=== PATIENT | female | born 1985 | race Caucasian/White ===

== ENCOUNTER → 2016-04-27 | Outpatient (CLI) | payer OTHER ==
[~2016-04-27] MED LIST: FAMO10CH; PRENTAB26 PO
== END | disposition home or self-care (01) ==
LOC: C.PAPS 11:43
PROVIDERS: ATTEND Obstetrics & Gynecology
DX: Z01.419 Encounter for gynecological examination (general) (routine) without abnormal findings (principal); Z87.898 Personal history of other specified conditions

== ENCOUNTER → 2017-04-16 | Outpatient (CLI) | payer OTHER ==
[2017-04-16 09:52] LABS: BASO % 0.3 %; BASO ABS # 0.02 K/uL (0-0.2); EOS % 2.4 %; EOS ABS # 0.17 K/uL (0-0.5); HEMATOCRIT 39.3 % (37-47); HEMOGLOBIN 13.2 g/dL (12.0-16.0); IG# 0.01 K/uL (0.00-0.02); LYMPH % 41.4 %; LYMPH ABS # 2.91 K/uL (1.2-3.4); MEAN CELL VOLUME 97.3 fL (80-100); MEAN CORPUSCULAR HEMOGLOBIN 32.7 pg (25-34); MEAN CORPUSCULAR HGB CONC 33.6 g/dl (32-36); MONO ABS # 0.56 K/uL (0.11-0.59); NEUT % 47.8 %; NEUT ABS # 3.36 K/uL (1.4-6.5); PLATELET COUNT 224 K/uL (130-400); RED CELL DISTRIBUTION WIDTH CV 12.7 % (11.5-14.5); WHITE BLOOD COUNT 7.03 K/uL (4.8-10.8)
[2017-04-16 10:07] LABS: ALT/SGPT 19 U/L (12-78); AST/SGOT 18 U/L (15-37); BLOOD UREA NITROGEN 10 mg/dl (7-18); CALCIUM 8.9 mg/dl (8.5-10.1); CARBON DIOXIDE 26 mmol/L (21-32); CREATININE 0.72 mg/dl (0.60-1.20); GLUCOSE 94 mg/dl (70-99); POTASSIUM 3.7 mmol/L (3.5-5.1); SODIUM 137 mmol/L (136-145)
[2017-04-16 10:17] LABS: ALKALINE PHOSPHATASE 66 U/L (45-117); TOTAL PROTEIN 7.1 gm/dl (6.4-8.2)
== END | disposition home or self-care (01) ==
LOC: C.LAB1850 08:11
PROVIDERS: ATTEND Family Medicine
DX: R42 Dizziness and giddiness (principal); R51 Headache

== ENCOUNTER → 2017-08-11 | Outpatient (CLI) | payer OTHER | END | disposition home or self-care (01) | LOC: C.LABPVFM 17:32 | PROVIDERS: ATTEND Family Medicine | DX: R10.9 Unspecified abdominal pain (principal) ==

== ENCOUNTER → 2017-11-01 | Outpatient (CLI) | payer OTHER ==
[~2017-11-01] MED LIST changes: -FAMO10CH; +HYDR-5688 PO; +IBUP-1050 PO; +MULT-506 PO; +NAPR1TAB9 PO; -PRENTAB26 PO
== END | disposition home or self-care (01) ==
LOC: C.LAB1850 16:20
PROVIDERS: ATTEND Family Medicine
DX: R10.32 Left lower quadrant pain (principal)

== ENCOUNTER 2020-10-25 07:52 | Inpatient (IN) ==
[2020-10-25] MEDS ORDERED: OXYTOCIN 30 UNITS/500 ML BAG IV PRN (08:43)
[2020-10-25] MEDS ORDERED: DINOPROSTONE 10 MG INSERT PV ONE (08:43)
--- NOTE | 2020-10-25 08:58 | History & Physical Report ---
Date of Service October 25, 2020 Assessment & Plan (1) Elective induction of labor planned: Plan: 35-year-old -0-0-1 at 39 weeks of gestation, IV , anxiety due to family history of IUFD, Vital signs stable afebrile, heart rate reassuring, GBS negative, Cervix unfavorable, Plan, admit, monitor, labs, cervical ripening with Cervidil, All questions were answered. (2) In vitro fertilization: (3) Asthma: (4) Advanced maternal age (AMA) in : Admission and Anticipated Discharge Date Admission Date: October 25, 2020 History of Present Illness Primary Care Provider: Malena Sandra PA-C Patient is a 35-year-old -0-0-1 at 39 weeks of gestation who was scheduled for induction of labor at term due to anxiety of family history of IUFD. She has presented twice with decreased movements and desire to be induced at 39 weeks. She was nervous and crying last week, because her sister has IUFD 2 years ago and this baby is an IVF . She had irregular contractions, no leakage of fluid or bleeding and now she reports good movements. Her has been complicated by, 1 AMA, 2 IVF , 3 anxiety, not on meds, 4 mild intermittent asthma, has not used inhaler during this . GBS is negative Allergies Allergy/AdvReac Type Severity Reaction Status Date / Time clarithromycin Allergy Mild DIARRHEA Verified 09/23/17 16:18 peanut Allergy Mild Itching Verified 10/25/20 08:01 throat latex Allergy Rash Verified 10/18/20 14:47 Cipro AdvReac Intermediate Dizziness/lightheadedness/tingling Verified 09/23/17 16:18 lips ciprofloxacin [Cipro] AdvReac Intermediate Dizziness/lightheadedness/tingling Verified 10/05/20 10:42 lips Home Medications Medication Instructions Recorded Confirmed Type ferrous sulfate 325 mg (65 mg 325 mg PO DAILY 10/05/20 10/25/20 History iron) tablet (iron) magnesium 100 mg capsule 100 mg PO DAILY 10/05/20 10/25/20 History omeprazole 10 mg capsule,delayed 10 mg PO DAILY 10/05/20 10/25/20 History release prenat.vits,clark,[id number] 1 tab PO DAILY 10/05/20 10/25/20 History Patient History Medical History (Updated 10/25/20 @ 08:57 by Ghada Mcdonald MD) Abnormal Pap smear of cervix HPV positive Abnormal PAP in 20's. - WNL now. Advanced maternal age (AMA) in Anxiety Currently sees a counselor. Discontinued Buspar 08/2019 and Hydroxyzine 11/2019. Asthma Albuterol inhaler PRN. - Hasn't used in 1 year. Former smoker Quit 07/28/2009 In vitro fertilization 02/14/20 Embryo transfer. The patient's had a vasectomy - Sperm retrieval. First was to a different FOB and spontaneous. (normal spontaneous vaginal delivery) 02/26/2014 6lbs 13oz 40 weeks. 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 Beliefs That Will Affect Care: None marital status: marital status details: Vishnu Driver Current Living Situation: Spouse Current Living Situation Comment: Lives with and 6yo son Benji current occupational status: employed current occupation: [employer] Other Information That Helps Us Care for You: No Feels Safe at Home: Yes and No Is there a partner from a previous relationship who is making you feel unsafe now?: No Any Concerns about Your Family Situation: No Would You Like to Speak to Someone About Your Situation: No Childhood Exposure to Second-Hand Smoke: No Dental Care, Regularly: No Assistive Devices: None OB History Full-term in 2013 [employer] History History of ovarian dermoid cystectomy in 2018, Denies any history of STDs including chlamydia, gonorrhea, herpes Review of Systems as per Subjective / HPI Physical Exam Constitutional: WD/WN, vitals as above well developed and well nourished Not in acute distress, smiling today. Gastrointestinal (Abdomen): Inspection/Auscultation: abdomen normal to inspection and + abdomen distended (Gravid, Rey 7 pounds) Genitourinary: normal external appearance OB Exam Abdomen: + vertex Manual OB Exam: + cervical dilation 1 cm, + cervical effacement 40% and + station -2 OB Exam Monitor Tracing: + external uterine monitor used and + category I Results & Data ([facility]) Vital Signs (Past 12 Hours) Vital Signs Temp Pulse Resp BP 10/25/20 08:03 36.7 C 96 H 18 127/84 10/25/20 07:58 96 H 127/84 Laboratory Results Lab Results 10/25/20 Range/Units 08:33 COVID-19 [facility]
[2020-10-25 09:42] LABS: Hematocrit (blood only) 36.4 % (37-47); Mean Corpuscular Volume 97.1 fL (80-100); Mean Platelet Volume 11.4 fL (7.4-10.4); Platelet Count 181 K/uL (130-400); RDW Coefficient of Variation 13.8 % (11.5-14.5); RDW Standard Deviation 49.2 fL (36.4-46.3); Red Blood Count 3.75 M/uL (4.2-5.4); White Blood Count 7.53 K/uL (4.8-10.8)
[2020-10-25] MEDS ORDERED: BUTORPHANOL TARTRATE 1 MG/ML VIAL IV ONE (20:04)
[2020-10-25] MEDS ORDERED: ONDANSETRON INJ 2 MG/ML 2 ML VIAL IV PRN ×2 (20:04→20:06)
[2020-10-25] MEDS ORDERED: NALBUPHINE HCL INJ 10 MG/ML AMP IV PRN (20:06)
[2020-10-25] MEDS ORDERED: NALOXONE HCL 1 MG in SODIUM CHLORIDE 0.9% 1000ML 1,000 ML IV PRN (20:06)
[2020-10-25] MEDS ORDERED: NALOXONE HCL 0.4 MG/1 ML VIAL/CARP IV PRN (20:06)
[2020-10-25] MEDS ORDERED: diphenhydrAMINE 50 MG/ML VIAL IV PRN (20:06)
[2020-10-25] MEDS ORDERED: fentaNYL 2MCG/ML ROPIVACAINE 1.25MG/ML 100 ML BAG EPI PRN (20:06)
[2020-10-25] MEDS ORDERED: ePHEDrine sulfate 50 MG/ML AMP IV PRN (20:06)
--- NOTE | 2020-10-25 20:06 | Obstetrical Progress Note ---
Date of Service October 25, 2020 Assessment & Plan Admission and Anticipated Discharge Date Admission Date: October 25, 2020 Subjective Patient is reevaluated She feels painful and desires pain meds Ctxs are coming every 1-2 min VE; 1-2 cm/ 30-40%/ -3, removed cervidil FHR categ I [place] ctxs q 2 min Discussed pain management and IV pain med and epidural She desires IV pain med and then diet Continue to monitor Results & Data ([facility]) Vital Signs (Past 12 Hours) Vital Signs Temp Pulse Resp BP 10/25/20 19:25 37.2 C 18 10/25/20 19:18 90 135/79 10/25/20 11:27 73 125/80 10/25/20 11:26 36.8 C 16
--- NOTE | 2020-10-25 20:07 | Anesthesiology Consultation ---
Date of Service October 25, 2020 Assessment & Plan (1) Encounter for pre-operative examination: Chart Review Chart Review: Patient NOT seen in Pre Admission Testing and Acceptable Risk for Labor Epidural Consults Requested none History Height/Weight Height: 5 ft 2 in Allergies Allergy/AdvReac Type Severity Reaction Status Date / Time peanut Allergy Severe Itching Verified 10/25/20 19:07 throat latex Allergy Intermediate Rash Verified 10/25/20 19:07 clarithromycin Allergy Mild DIARRHEA Verified 09/23/17 16:18 Cipro AdvReac Intermediate Dizziness/lightheadedness/tingling Verified 09/23/17 16:18 lips ciprofloxacin [Cipro] AdvReac Intermediate Dizziness/lightheadedness/tingling Verified 10/05/20 10:42 lips Medications Home Medications Medication Instructions Recorded Confirmed Last Taken ferrous sulfate 325 mg (65 mg 325 mg PO DAILY 10/05/20 10/25/20 10/24/20 iron) tablet (iron) magnesium 100 mg capsule 100 mg PO DAILY 10/05/20 10/25/20 10/24/20 omeprazole 10 mg capsule,delayed 10 mg PO DAILY 10/05/20 10/25/20 10/24/20 release prenat.vits,clark,[id number] 1 tab PO DAILY 10/05/20 10/25/20 10/24/20 Active Medications Generic Name Dose Route Start Last Admin Trade Name Freq PRN Reason Stop Dose Admin Lactated Ringer's 1,000 mls @ 150 mls/hr 10/25/20 08:43 10/26/20 10:00 Lr IV 10/27/20 08:42 999 mls/hr .Q6H40M PRN Infusion L&D Protocol Protocol Oxytocin 30 units in 500 mls @ 8 mls/hr 10/26/20 07:43 10/26/20 10:15 Pitocin IV 10/28/20 07:42 0.48 units/hr .Q24H PRN 8 mls/hr Labor Induction/Augmentation Titration Protocol 0.48 UNITS/HR Misoprostol 50 mcg 10/26/20 00:00 10/26/20 03:59 Misoprostol 50 Mcg Tab PO 11/25/20 00:00 50 mcg Q4 AMINA Administration Past Medical History Medical History Abnormal Pap smear of cervix HPV positive Abnormal PAP in 20's. - WNL now. Advanced maternal age (AMA) in Anxiety Currently sees a counselor. Discontinued Buspar 08/2019 and Hydroxyzine 11/2019. Asthma Albuterol inhaler PRN. - Hasn't used in 1 year. Former smoker Quit 07/28/2009 In vitro fertilization 02/14/20 Embryo transfer. The patient's had a vasectomy - Sperm retrieval. First was to a different FOB and spontaneous. (normal spontaneous vaginal delivery) 02/26/2014 6lbs 13oz 40 weeks. Reflux esophagitis Exercise / Class Metabolic Activity II 4-5 Yardwork/Stairs/Walk up hill Past Family History Family History Other No known health problems Past Surgical History Surgical History History of hysteroscopy History of right oophorectomy Dermoid cyst - 09/23/2017 Hx of appendectomy Past Anesthesia History No Hx of Anesthesia Complications and No Family Hx of Anesthesia Complications History of PONV No Hx of PONV and No Hx of Motion Sickness Social History Smoking Status: Former smoker tobacco type: cigarettes Do You Dip or Chew Tobacco: No Hx Alcohol Use: No Hx Substance Use: No Physical Exam Vital Signs Last Vital Signs Temp 36.7 C 10/26/20 07:03 Pulse 114 H 10/26/20 11:13 Resp 18 10/26/20 07:03 BP 98/63 L 10/26/20 11:13 Pulse Ox 99 10/26/20 11:11 Testing Laboratory Results 10/25/20 09:26
[2020-10-26] MEDS: miSOPROStoL 50 MCG TAB PO SCH ×2 (00:03→03:59)
[2020-10-26] MEDS ORDERED: OXYTOCIN 30 UNITS/500 ML BAG IV PRN ×2 (07:43→19:23)
--- NOTE | 2020-10-26 07:45 | Obstetrical Progress Note ---
Date of Service October 26, 2020 Assessment & Plan Admission and Anticipated Discharge Date Admission Date: October 25, 2020 Subjective Patient is reevaluated s/p Cervidil and 2 doses of Cytotec She feels irregular contractions No LOF/VB +FM's VSS Afebrile FHR categ I VE: 2cm/ 30%/ -3 Continue to monitor Will start Oxytocin per protocol Results & Data ([facility] [place]) Vital Signs (Past 12 Hours) Vital Signs Temp Pulse Resp BP Pulse Ox 10/26/20 07:03 36.7 C 86 18 117/71 10/26/20 03:18 36.7 C 73 123/76 10/25/20 23:34 84 94 10/25/20 23:31 81 95 10/25/20 23:26 81 94 10/25/20 23:24 81 94 10/25/20 23:21 82 96 10/25/20 23:18 88 94 10/25/20 23:16 83 97 10/25/20 23:11 83 96 10/25/20 23:09 105 H 94 10/25/20 23:06 88 97 10/25/20 23:01 76 96 10/25/20 22:56 95 H 97 10/25/20 22:51 88 96 10/25/20 22:46 79 96 10/25/20 22:41 93 H 96 10/25/20 22:36 96 H 120/62 98 10/25/20 22:35 37.0 C 18 10/25/20 22:29 104 H 96 10/25/20 22:27 111 H 94 10/25/20 22:24 102 H 97 10/25/20 22:22 105 H 94 10/25/20 22:19 104 H 97 10/25/20 22:14 102 H 96 10/25/20 22:09 96 H 95 10/25/20 22:05 90 94 10/25/20 22:04 96 H 97 10/25/20 21:59 114 H 97 10/25/20 21:54 100 H 95 10/25/20 21:49 98 H 96 10/25/20 21:44 94 H 95 10/25/20 21:39 111 H 98 10/25/20 21:34 93 H 97 10/25/20 21:29 84 96 10/25/20 21:24 81 99
[2020-10-26] MEDS: LACTATED RINGER'S 1,000 ML IV PRN ×2 (07:50→11:35)
[2020-10-26] MEDS ORDERED: fentaNYL citrate 100 MCG/2 ML VIAL ONE (09:53)
[2020-10-26] MEDS ORDERED: BUPIVACAINE 0.25% 30 ML VIAL ONE (09:53)
[2020-10-26] MEDS ORDERED: ePHEDrine sulfate 50 MG/ML AMP ONE (09:53)
[2020-10-26] MEDS ORDERED: SODIUM CHLORIDE 0.9% INJ 10 ML VIAL ONE (09:53)
[2020-10-26] MEDS ORDERED: fentaNYL 2MCG/ML ROPIVACAINE 1.25MG/ML 100 ML BAG EPI ONE (09:54)
[2020-10-26] MEDS ORDERED: NALBUPHINE HCL INJ 10 MG/ML AMP IV PRN (11:17)
[2020-10-26] MEDS ORDERED: diphenhydrAMINE 50 MG/ML VIAL IV PRN (11:17)
[2020-10-26] MEDS ORDERED: ePHEDrine sulfate 50 MG/ML AMP IV PRN (11:17)
[2020-10-26] MEDS ORDERED: NALOXONE HCL 0.4 MG/1 ML VIAL/CARP IV PRN (11:17)
[2020-10-26] MEDS ORDERED: fentaNYL 2MCG/ML ROPIVACAINE 1.25MG/ML 100 ML BAG EPI PRN (11:17)
[2020-10-26] MEDS ORDERED: NALOXONE HCL 1 MG in SODIUM CHLORIDE 0.9% 1000ML 1,000 ML IV PRN (11:17)
--- NOTE | 2020-10-26 13:32 | Labor Progress Brief Note ---
Date of Service October 26, 2020 Assessment & Plan Admission and Anticipated Discharge Date Admission Date: October 25, 2020 Physical Exam Genitourinary: Manual OB Exam: + cervical dilation 3 cm, + cervical effacement 60%, + station -2 and + amniotic fluid (AROM with Amni-hook clear fluid) clear OB Exam Monitor Tracing: + external FHT monitor used, + external uterine monitor used, + category I and + normal FHT variability Results & Data ([facility]) Vital Signs (Past 12 Hours) Vital Signs Temp Pulse Resp BP Pulse Ox 10/26/20 13:26 104 H 100 10/26/20 13:21 88 98 10/26/20 13:16 85 104/57 L 98 10/26/20 13:11 81 97 10/26/20 13:06 88 99 10/26/20 13:02 82 103/56 L 10/26/20 13:01 81 98 10/26/20 12:56 106 H 98 10/26/20 12:51 110 H 99 10/26/20 12:46 92 H 114/76 98 10/26/20 12:41 94 H 98 10/26/20 12:36 105 H 98 10/26/20 12:31 84 119/81 98 10/26/20 12:26 90 98 10/26/20 12:21 95 H 98 10/26/20 12:16 83 100 10/26/20 12:13 91 H 114/76 10/26/20 12:11 95 H 99 10/26/20 12:09 104 H 119/78 10/26/20 12:06 99 H 100 10/26/20 12:03 85 124/72 10/26/20 12:01 99 H 100 10/26/20 11:58 81 119/75 10/26/20 11:56 87 100 10/26/20 11:53 36.7 C 89 16 121/74 100 10/26/20 11:51 90 16 100 10/26/20 11:48 81 125/76 10/26/20 11:46 80 99 10/26/20 11:43 82 123/72 10/26/20 11:41 80 100 10/26/20 11:38 78 114/66 10/26/20 11:36 82 18 100 10/26/20 11:32 96 H 104/72 10/26/20 11:31 90 99 10/26/20 11:30 123 H 101/71 10/26/20 11:28 103 H 108/71 10/26/20 11:26 112 H 100/64 100 10/26/20 11:24 101 H 110/73 10/26/20 11:22 81 114/75 10/26/20 11:21 112 H 16 99 10/26/20 11:20 71 106/64 10/26/20 11:18 70 60/39 L 10/26/20 11:16 91 H 16 69/44 L 99 10/26/20 11:15 116 H 102/62 10/26/20 11:13 114 H 98/63 L 10/26/20 11:11 122 H 18 99 10/26/20 11:10 102 H 115/70 10/26/20 11:08 100 H 125/71 10/26/20 11:07 97 H 124/67 10/26/20 11:06 100 H 99 10/26/20 11:05 111 H 134/83 10/26/20 11:02 96 H 131/75 10/26/20 11:01 90 134/81 98 10/26/20 10:58 98 H 140/82 10/26/20 10:57 88 143/79 H 10/26/20 10:56 89 98 10/26/20 10:55 89 148/93 H 10/26/20 10:51 107 H 99 10/26/20 10:48 85 123/78 10/26/20 10:46 88 99 10/26/20 10:18 79 114/70 10/26/20 09:16 82 125/80 10/26/20 08:16 92 H 118/82 10/26/20 07:03 36.7 C 86 18 117/71 10/26/20 03:18 36.7 C 73 123/76
[2020-10-26] MEDS: CALCIUM CARBONATE 500 MG CHEWABLE TAB PO PRN ×2 (16:31→22:13)
--- NOTE | 2020-10-26 19:14 | Delivery Summary ---
Vaginal Delivery Summary Date of Service October 26, 2020 Vaginal Delivery Summary Delivery Note live female over intact perineum with nuchal cord x2 reduced after delivery of head. Delayed cord cramping with Apgars 7/8 weight pending. Cord blood obtained. Spontaneous delivery of intact placenta. First degree tear repaired with 3/0 Vicryl suture. EBL 250 ml. Final sponge, needle and instrument count are correct. Mom and baby stable.
[2020-10-26] MEDS ORDERED: HYDROCORTISONE ACETATE 25 MG SUPP PR PRN (19:23)
[2020-10-26] MEDS ORDERED: SUPERCREAM 0.870% 15 GM JAR EXT PRN (19:23)
[2020-10-26] MEDS ORDERED: bisacodyL 10 MG SUPP PR PRN (19:23)
[2020-10-26] MEDS ORDERED: BENZOCAINE 20% AER SPR 82.5 GM CAN EXT PRN (19:23)
--- NOTE | 2020-10-26 19:33 | Anesthesia Procedure Note ---
Date of Service October 26, 2020 Anesthesia Post Epidural Note Vital Signs Vital Signs: Temp Pulse Resp BP Pulse Ox 37.3 C 122 H 18 122/75 100 10/26/20 19:01 10/26/20 19:31 10/26/20 19:16 10/26/20 19:31 10/26/20 18:52 Pain Intensity Lower Back: Pain Intensity: 0 Notes Mental Status: alert / awake / arousable and participated in evaluation Patient Amnestic to Procedure: Yes Nausea / Vomiting: adequately controlled Pain: adequately controlled Airway Patency, RR, SpO2: stable & adequate BP & HR: stable & adequate Hydration State: stable & adequate Neuraxial Anesthesia: was administered and sensory block is resolving Anesthetic Complications: no major complications apparent and Pt Satisfied with anesthetic care Epidural: Removed without complications and With tip intact
[2020-10-26] MEDS: IBUPROFEN 600 MG TAB PO PRN (19:44)
[2020-10-26] MEDS: DOCUSATE SODIUM 100 MG CAP PO SCH (22:08)
[2020-10-26] MEDS: ACETAMINOPHEN 325 MG TAB PO PRN (22:38)
[2020-10-27] MEDS: IBUPROFEN 600 MG TAB PO PRN ×3 (02:17→15:10)
[2020-10-27] MEDS: ACETAMINOPHEN 325 MG TAB PO PRN ×2 (04:00→11:23)
[2020-10-27 06:47] LABS: Hematocrit (blood only) 25.9 % (37-47); Hemoglobin 8.9 g/dL (12.0-16.0); Mean Corpuscular Hemoglobin 33.6 pg (25-34); Mean Corpuscular Hgb Conc 34.4 g/dL (32-36); Mean Corpuscular Volume 97.7 fL (80-100); Mean Platelet Volume 11.2 fL (7.4-10.4); Platelet Count 160 K/uL (130-400); RDW Standard Deviation 49.3 fL (36.4-46.3); Red Blood Count 2.65 M/uL (4.2-5.4); White Blood Count 15.79 K/uL (4.8-10.8)
[2020-10-27] MEDS: DOCUSATE SODIUM 100 MG CAP PO SCH (07:22)
[2020-10-27] MEDS ORDERED: FERROUS SULFATE 325 MG TAB PO SCH ×2 (08:00→09:00)
[2020-10-27] MEDS ORDERED: PRENATAL VITAMIN 1 TAB PO SCH (08:00)
[2020-10-27] MEDS ORDERED: NON-FORMULARY MEDICATION (Magnesium 100 mg Capsule) PO SCH (09:00)
[2020-10-27] MEDS ORDERED: DIPHTHERIA/TETANUS/PERTUSSIS 0.5 ML SYR/VIAL IM ONE (09:00)
[2020-10-27] MEDS ORDERED: NON-FORMULARY MEDICATION (Prenat.Vits,Cal,Min-Iron-Folic Tablet) PO SCH (09:00)
--- NOTE | 2020-10-27 09:33 | Obstetrical Progress Note ---
Date of Service October 27, 2020 Subjective Ambulation: ambulating normally Voiding: no voiding problems Passing Gas:: Yes Diet Tolerance:: regular diet Feeding Type:: breast feeding Current Pain Level(1-10): 0 doing well plans for d/c Physical Exam Constitutional WD/WN, vitals as above comfortable abdomen soft and non-tender fundus firm neg Mirella's no edema for d/c Results & Data ([facility]) Vital Signs (Past 12 Hours) Vital Signs Temp Pulse Resp BP Pulse Ox 10/27/20 03:50 36.8 C 77 18 118/71 10/26/20 22:50 36.9 C 78 18 121/74 99 Laboratory Results Laboratory Results - last 72 hr 10/25/20 10/25/20 10/25/20 08:33 08:33 09:21 WBC RBC Hgb Hct MCV MCH MCHC RDW Std Deviation RDW Coeff of Memo Plt Count MPV COVID-19 Eval Order [email or web address] Hep Bs Antigen HIV 1&2 Ab/P24 Ag 4thGn Neg SARS-CoV-2, RNA, NAAT NEGATIVE 10/25/20 10/25/20 10/27/20 09:26 09:26 06:04 WBC 7.53 15.79 H RBC 3.75 L 2.65 L Hgb 12.0 8.9 L D Hct 36.4 L 25.9 L MCV 97.1 97.7 MCH 32.0 33.6 MCHC 33.0 34.4 RDW Std Deviation 49.2 H 49.3 H RDW Coeff of Memo 13.8 14.0 Plt Count 181 160 MPV 11.4 H 11.2 H COVID-19 Eval Order Hep Bs Antigen Neg HIV 1&2 Ab/P24 Ag 4thGn SARS-CoV-2, RNA, NAAT
--- NOTE | 2020-10-27 09:39 | Obstetrical Progress Note ---
Date of Service October 27, 2020 Subjective Ambulation: ambulating normally Voiding: no voiding problems Passing Gas:: Yes Diet Tolerance:: regular diet Lochia:: Small Feeding Type:: breast feeding Current Pain Level(1-10): 0 doing well plans for d/c Physical Exam Constitutional WD/WN, vitals as above comfortable abdomen soft and non-tender fundus firm no edema neg Mirella's Results & Data ([facility]) Vital Signs (Past 12 Hours) Vital Signs Temp Pulse Resp BP Pulse Ox 10/27/20 03:50 36.8 C 77 18 118/71 10/26/20 22:50 36.9 C 78 18 121/74 99 Laboratory Results Laboratory Results - last 72 hr 10/25/20 10/25/20 10/25/20 08:33 08:33 09:21 WBC RBC Hgb Hct MCV MCH MCHC RDW Std Deviation RDW Coeff of Memo Plt Count MPV COVID-19 Eval Order [email or web address] Hep Bs Antigen HIV 1&2 Ab/P24 Ag 4thGn Neg SARS-CoV-2, RNA, NAAT NEGATIVE 10/25/20 10/25/20 10/27/20 09:26 09:26 06:04 WBC 7.53 15.79 H RBC 3.75 L 2.65 L Hgb 12.0 8.9 L D Hct 36.4 L 25.9 L MCV 97.1 97.7 MCH 32.0 33.6 MCHC 33.0 34.4 RDW Std Deviation 49.2 H 49.3 H RDW Coeff of Memo 13.8 14.0 Plt Count 181 160 MPV 11.4 H 11.2 H COVID-19 Eval Order Hep Bs Antigen Neg HIV 1&2 Ab/P24 Ag 4thGn SARS-CoV-2, RNA, NAAT
[2020-10-27] MEDS: CALCIUM CARBONATE 500 MG CHEWABLE TAB PO PRN (11:23)
[2020-10-27] MEDS ORDERED: bisacodyL 5 MG TABEC PO SCH (20:00)
== END 2020-10-27 20:20 | disposition home or self-care (01) | DRG 807 ==
LOC: 4S1 07:52 → 4S2 10-26 21:51